=== PATIENT | female | born 1995 | race Caucasian/White ===

== ENCOUNTER 2023-03-03 15:14 | Outpatient (CLI) | payer OTHER, SELFPAY | END 2023-03-03 15:15 | disposition home or self-care (01) | LOC: LKVREF 15:15 | PROVIDERS: PCP Physician Assistant Medical; Visit Provider Emergency Medicine | DX: Z00.00 Encounter for general adult medical examination without abnormal findings (principal); Z13.1 Encounter for screening for diabetes mellitus; Z13.6 Encounter for screening for cardiovascular disorders | CPT/HCPCS: 80061; 82947 ==

== ENCOUNTER 2023-09-01 08:26 | Outpatient (CLI) | payer OTHER, SELFPAY | END 2023-09-01 08:27 | disposition home or self-care (01) | PROVIDERS: PCP Physician Assistant Medical; Visit Provider Physician Assistant Medical | DX: Z11.59 Encounter for screening for other viral diseases (principal) | CPT/HCPCS: 86706; 87340 ==